=== PATIENT | female | born 1990 | race Caucasian/White ===

== ENCOUNTER 2022-01-06 11:24 | Outpatient (CLI) | payer OTHER ==
[2022-01-06 18:02] LABS: BASOPHILS # (AUTO) 0.1 10^3/uL (0.0-0.1); BASOPHILS % (AUTO) 0.8 %; EOSINOPHILS # (AUTO) 0.1 10^3/uL (0.0-0.7); HCT - HEMATOCRIT 39.3 % (37.0-47.0); HGB - HEMOGLOBIN 13.4 g/dL (12.0-16.0); LYMPHOCYTES # (AUTO) 1.8 10^3/uL (1.5-3.5); LYMPHOCYTES % (AUTO) 29.4 %; MEAN CORPUSCULAR HEMOGLOBIN 32.7 pg (27.0-31.0); MEAN CORPUSCULAR HGB CONC 34.1 g/dL (32.0-36.0); MEAN CORPUSCULAR VOLUME 95.9 fL (81.0-99.0); MEAN PLATELET VOLUME 12.3 fL (7.9-10.8); MONOCYTES # (AUTO) 0.5 10^3/uL (0.0-1.0); MONOCYTES % (AUTO) 7.7 %; NEUTROPHILS # (AUTO) 3.7 10^3/uL (1.5-6.6); NEUTROPHILS % (AUTO) 60.9 %; PLT - PLATELET COUNT 154 10^3/uL (130-450); RED CELL DISTRIBUTION WIDTH 12.2 % (12.0-15.0); WHITE BLOOD COUNT 6.1 x10^3/uL (4.8-10.8)
[2022-01-06 18:15] LABS: ALBUMIN 4.6 g/dL (3.2-5.5); ALBUMIN/GLOBULIN RATIO 1.4 (1.0-2.2); BILIRUBIN,TOTAL 0.8 mg/dL (0.2-1.0); CALCIUM 9.5 mg/dL (8.5-10.3); CREATININE 0.7 mg/dL (0.4-1.0); POTASSIUM 3.7 mmol/L (3.5-5.0)
[2022-01-06 18:37] LABS: THYROID STIMULATING HORMONE 0.91 uIU/mL (0.34-5.60)
== END 2022-01-06 11:25 | disposition home or self-care (01) ==
LOC: LAB.N 11:24
PROVIDERS: ATTEND Physician Assistant
DX: F41.8 Other specified anxiety disorders (principal)
CPT/HCPCS: 36415; 80053; 84443; 85025

== ENCOUNTER 2022-09-10 21:33 | Emergency (ER) | payer OTHER ==
[2022-09-10 21:44] VITALS: BP 103/79
--- NOTE | 2022-09-10 21:57 | ED Physician Documentation ---
PD HPI HEADACHE - Stated complaint Stated Complaint: DIZZY/HOT FLASHES - Chief complaint Chief Complaint: Neuro - History obtained from History obtained from: Patient - Additional information Additional information: 2 weeks ago at work she hit her head on a beam. Had a wound and had some dizzy spells after. Tonight whilst using some cannabis she started to feel dizzy and hot all over and tingling in her arms and legs. She not been having headaches since the accident but has had some head pressure. No vomiting or nausea. PD PAST MEDICAL HISTORY - Present Medications Home Medications: Ambulatory Orders Medication Instructions Recorded Confirmed Escitalopram [Lexapro] 10 mg PO DAILY 09/10/22 09/10/22 - Allergies Allergies/Adverse Reactions: Allergies Allergy/AdvReac Type Severity Reaction Status Date / Time No Known Drug Allergies Allergy Verified 09/10/22 21:42 PD ED PE NORMAL - Vitals Vital signs reviewed: Yes - General General: Alert and oriented X 3, No acute distress, Other (Smells of marijuana) - HEENT HEENT: PERRL, EOMI, Other (Healing dermabonded laceration of the left forehead) - Neck Neck: Supple, no meningeal sign, No bony TTP - Neuro Eye Opening: Spontaneous Motor: Obeys Commands Verbal: Oriented GCS Score: 15 - Psych Psych: Normal mood, Normal affect Results - Vitals Vitals: Vital Signs - 24 hr 09/10/22 21:39 Temperature 36.7 C Heart Rate 82 Respiratory 16 Rate Blood Pressure 103/79 O2 Saturation 100 Oxygen O2 Source Room air - Rads (name of study) CT Head- NAD Relevant Findings:: Final report received, EMP independent interpretation of test PD Medical Decision Making - ED course ED course: 31-year-old woman presents for the evaluation of a head injury. Her symptoms potentially related to marijuana use, but she says she uses cannabis frequently and these are not symptoms she is used to. We had a long talk about head CT and I actually recommended against it given the timeframe, but she would very much like to go forward with it for peace of mind. Note for MIPS review she had posttraumatic amnesia and Evidence of trauma above the clavicles as she has a healing laceration of the left forehead. Departure - Departure Disposition: 01 Home, Self Care Clinical Impression: Head injury Condition: Good Record reviewed to determine appropriate education?: Yes Instructions: ED Head Injury Closed Comments: CT scan of the head is very normal. Return for new or worsening symptoms. Follow-up with your primary care physician, next available appointment.
--- NOTE | 2022-09-10 22:31 | CT Report ---
PROCEDURE: HEAD WO INDICATIONS: Head injury TECHNIQUE: Noncontrast 4.5 mm thick angled axial sections acquired from the foramen magnum to the vertex. For r adiation dose reduction, the following was used: automated exposure control, adjustment of mA and/or kV according to patient size. COMPARISON: None. FINDINGS: Image quality: Excellent. CSF spaces: Basal cisterns are patent. No extra-axial fluid collections. Ventricles are normal in size and shape. Brain: No midline shift. No intracranial masses or hemorrhage. Watts-white matter interface is norm al. Skull and face: Calvarium and visualized facial bones are intact, without suspicious lesions. Sinuses: Visualized sinuses and mastoids are clear. IMPRESSION: 1. No acute intracranial process. Reviewed by: Chelo Rosenberg MD on 09/10/2022 10:29 PM PDT Approved by: Chelo Rosenberg MD on 09/10/2022 10:29 PM PDT Station ID: [id number]
== END 2022-09-10 22:40 | disposition home or self-care (01) ==
LOC: ED 21:33
DX: S09.90XA Unspecified injury of head, initial encounter (principal); W22.09XA Striking against other stationary object, initial encounter; S01.81XD Laceration without foreign body of other part of head, subsequent encounter; W22.09XD Striking against other stationary object, subsequent encounter
CPT/HCPCS: 99282; 99284

== ENCOUNTER 2022-10-20 08:00 | Outpatient (CLI) | payer OTHER ==
[2022-10-20 20:24] LABS: BACTERIAL VAGINOSIS DNA NEGATIVE (NEGATIVE); CANDIDA GLABRATA DNA NEGATIVE (NEGATIVE); CANDIDA GROUP DNA NEGATIVE (NEGATIVE); CANDIDA KRUSEI DNA NEGATIVE (NEGATIVE); TRICHOMONAS VAGINALIS DNA NEGATIVE (NEGATIVE)
== END 2022-10-20 23:59 | disposition home or self-care (01) ==
LOC: LAB.WCP 08:00
PROVIDERS: ATTEND Physician Assistant
DX: N89.8 Other specified noninflammatory disorders of vagina (principal)
CPT/HCPCS: 81514